=== PATIENT | female | born 1940 | race Caucasian/White ===

== ENCOUNTER 2023-05-14 20:50 | Emergency (ER) | payer OTHER ==
[~2023-05-14] VITALS: Ht 160 cm; Wt 79.4 kg
[2023-05-14 20:58] VITALS: TEMP 98.2
[2023-05-14] MEDS ORDERED: diphenhydrAMINE HCL 50 MG/ML VIAL ONE (22:29)
[2023-05-14] MEDS: diphenhydrAMINE HCL 50 MG/ML VIAL IM ONE (22:30)
[2023-05-14 22:42] LABS: BASOPHILS # (AUTO) 0.1 K/uL (0.0-0.2); BASOPHILS % (AUTO) 0.9 % (0.0-2.0); EOSINOPHILS # (AUTO) 0.1 K/uL (0.0-0.7); EOSINOPHILS % (AUTO) 1.4 % (0.0-6.0); HEMATOCRIT 32 % (33-45); HEMOGLOBIN 10.9 g/dL (11.5-14.8); LYMPHOCYTES # (AUTO) 2.3 K/uL (0.8-4.8); LYMPHOCYTES % (AUTO) 27.7 % (20.0-44.0); MEAN CORPUSCULAR HEMOGLOBIN 30 PG (26.0-33.0); MEAN CORPUSCULAR HGB CONC 34 g/dl (31.0-36.0); MEAN CORPUSCULAR VOLUME 90 fL (82-100); MONOCYTES # (AUTO) 0.7 K/uL (0.1-1.30); MONOCYTES % (AUTO) 8.1 % (2.0-12.0); NEUTROPHILS # (AUTO) 5.1 K/uL (1.8-8.9); NEUTROPHILS % (AUTO) 61.9 % (43.0-81.0); PLATELET COUNT (AUTO) 287 K/uL (150-450); RED CELL DISTRIBUTION WIDTH 13.5 % (11.5-15.0); WHITE BLOOD COUNT (AUTO) 8.2 K/uL (4.3-11.0)
[2023-05-14 23:05] LABS: CALCIUM, SERUM 9.3 mg/dL (8.5-10.1); CARBON DIOXIDE 24 mmol/L (21-32); CHLORIDE 102 mmol/L (98-107); CREATININE 1.1 mg/dL (0.6-1.3); GLUCOSE 159 mg/dL (74-106); POTASSIUM 3.5 mmol/L (3.5-5.1); SODIUM SERUM 135 mmol/L (136-145); UREA NITROGEN, BLOOD 19 mg/dL (7-18)
[2023-05-14 23:10] LABS: ALANINE AMINOTRANSFERASE 20 U/L (12-78); ALBUMIN 3.3 g/dL (3.4-5.0); ALCOHOL, BLOOD < 3 mg/dL (0-10); ALKALINE PHOSPHATASE 98 U/L (46-116); ASPARTATE AMINOTRANSFERASE 15 U/L (15-37); BILIRUBIN,DIRECT 0.1 mg/dL (0.0-0.2); BILIRUBIN,TOTAL 0.3 mg/dL (0.2-1.0); TOTAL PROTEIN, SERUM 7.1 g/dL (6.4-8.2)
[2023-05-14 23:16] LABS: ACETAMINOPHEN <10 ug/ml (10-30); SALICYLATE 0.4 mg/dL (2.8-20.0)
[2023-05-14 23:30] LABS: APPEARANCE,URINE CLEAR (CLEAR); BILIRUBIN,URINE NEGATIVE (NEGATIVE); BLOOD, URINE TRACE-INTA Ery/uL (NEGATIVE); COLOR,URINE YELLOW (YELLOW); KETONES,URINE NEGATIVE (NEGATIVE); LEUKOCYTE ESTERASE ,URINE 1+ (NEGATIVE); NITRITE, URINE NEGATIVE (NEGATIVE); PH,URINE 6.5 (5.0-8.0); PROTEIN,URINE NEGATIVE (NEGATIVE); UGLUCOSE NEGATIVE (NEGATIVE); UROBILINOGEN,URINE 0.2 EU/dL (0.2)
[2023-05-15 00:09] LABS: AMPHETAMINE, URINE NEGATIVE (NEGATIVE); BARBITURATE, URINE NEGATIVE (NEGATIVE); BENZODIAZEPINE, URINE NEGATIVE (NEGATIVE); CANNABINOID, URINE NEGATIVE (NEGATIVE); COCCAINE, URINE NEGATIVE (NEGATIVE); OPIATE, URINE NEGATIVE (NEGATIVE); PHENCYCLIDINE SCREEN,URINE NEGATIVE (NEGATIVE)
[2023-05-15 00:20] LABS: ADD URINE CULTURE YES; BACTERIA,URINE Few /HPF (None Seen); RBC,URINE 0-2 /HPF (0-2)
[2023-05-15] MEDS ORDERED: NITROFURANTOIN/MONOHYDRATE MACROCRYSTALS 100 MG CAPSULE ONE (00:50)
[2023-05-15] MEDS: NITROFURANTOIN/MONOHYDRATE MACROCRYSTALS 100 MG CAPSULE PO ONE (00:56)
[2023-05-15] MEDS ORDERED: NITR100C6 PO (06:10)
[2023-05-15] MEDS ORDERED: CEFD300C3 PO (08:32)
[2023-05-15] MEDS ORDERED: OLANZAPINE 5 MG TABLET ONE (10:55)
[2023-05-15] MEDS: OLANZAPINE 5 MG TABLET PO ONE (11:06)
[2023-05-15 12:55] VITALS: BP 145/82; O2SAT 98
== END 2023-05-15 11:49 ==
LOC: ER 20:53
DX: N39.0 Urinary tract infection, site not specified (principal); R46.1 Bizarre personal appearance; Z20.822 Contact with and (suspected) exposure to COVID-19
CPT/HCPCS: 99283; 96372; 85025; 80048; 87086; 80076; 81001; 36415; 87426; 80143; 80320; 80307; J1200; G0480